=== PATIENT | female | born 1940 | race Caucasian/White ===

== ENCOUNTER → 2019-12-27 | Outpatient (CLI) | payer OTHER ==
[~2019-12-27] MED LIST: ASPI81CH; FURO20; Klor-Con 1010 MEQ; OMEP20ER; SULI150; Synthroid175 MCG; TRIHYD253A
== END | disposition home or self-care (01) ==
LOC: LAB SHORT 11:41 → LAB EV 11:41
DX: R05 Cough (principal); Z20.828 Contact with and (suspected) exposure to other viral communicable diseases
CPT/HCPCS: U0003

== ENCOUNTER 2021-01-06 11:06 | Day surgery (SDC) | payer OTHER ==
[~2021-01-06] VITALS: Ht 160 cm; Wt 81.0 kg
[~2021-01-06 11:06] MED LIST changes: +Amlodipine Bes2.5 MG PO; +Aspir 8181 MG PO; +DOCU LIQUI50 MG/5 ML PO; +FENOFIBRATE145 MG PO; +FERSU300 PO; +FURO40 PO; +LEVSOD150 PO; +NORVASC5 MG PO; +PANTOPRAZOLE SO40 M2 PO; +PRESERVISION AREDS 2; +TAMS.4ER PO; +VIT1CAPS12; +Vitamin D2000 UNIT PO
[2021-01-06] MEDS ORDERED: PROBIOTIC1 EA13 (11:28)
--- NOTE | 2021-01-06 12:50 | NUR ---
01/06/21 1250 Trupti Churchill 2ML NORMAL SALINE USED TO ELEVATE SPLENIC FLEXURE POLYP
== END 2021-01-06 13:35 | disposition home or self-care (01) ==
LOC: ORSCSDS 11:06
PROVIDERS: Internal Medicine Gastroenterology
PROC: 0DBN8ZX Excision of Sigmoid Colon, Via Natural or Artificial Opening Endoscopic, Diagnostic (ICD-10-PCS; principal; 2021-01-06 12:15)
PROC: 0DBH8ZX Excision of Cecum, Via Natural or Artificial Opening Endoscopic, Diagnostic (ICD-10-PCS; principal; 2021-01-06 12:15)
PROC: 0DBL8ZX Excision of Transverse Colon, Via Natural or Artificial Opening Endoscopic, Diagnostic (ICD-10-PCS; principal; 2021-01-06 12:15)
DX: D50.9 Iron deficiency anemia, unspecified (principal); Z86.010 Personal history of colon polyps; D12.0 Benign neoplasm of cecum; D12.3 Benign neoplasm of transverse colon; K63.5 Polyp of colon; K64.8 Other hemorrhoids; Z87.11 Personal history of peptic ulcer disease; I10 Essential (primary) hypertension; E66.9 Obesity, unspecified; Z68.31 Body mass index [BMI] 31.0-31.9, adult; Z79.82 Long term (current) use of aspirin; Z79.899 Other long term (current) drug therapy
CPT/HCPCS: 88305; A9270; J2704; J7120

== ENCOUNTER → 2021-01-08 | Outpatient (CLI) | payer OTHER ==
[~2021-01-08] MED LIST changes: +PROBIOTIC1 EA13
== END | disposition home or self-care (01) ==
LOC: LAB EV 11:56 → LAB SHORT 11:56
DX: L03.116 Cellulitis of left lower limb (principal)
CPT/HCPCS: 87070; 87077; 87186; 87205

== ENCOUNTER → 2021-06-02 | Outpatient (CLI) | payer OTHER | LOC: LAB SHORT 13:06 → LAB 13:06 | DX: L98.9 Disorder of the skin and subcutaneous tissue, unspecified (principal); L28.0 Lichen simplex chronicus; L30.8 Other specified dermatitis; Z88.1 Allergy status to other antibiotic agents | CPT/HCPCS: 88305; 88312 ==